=== PATIENT | male | born 1990 | race African-American/Black ===

== ENCOUNTER 2018-01-09 11:03 | Emergency (ER) | payer SELFPAY ==
[2018-01-09 11:26] VITALS: BP 117/75; PULSE 68; TEMP 98.3; BMI 27.6
--- NOTE | 2018-01-09 13:08 | PDOC ---
History of Present Illness - General Chief Complaint: Back Pain Stated Complaint: PAIN/ BACK, LEGS Time Seen by Provider: 01/09/18 12:55 History Source: Patient Exam Limitations: No Limitations - History of Present Illness Initial Comments: 01/09/18 13:07 Patient came for evaluation of chronic low back pain. 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 was evaluated in emergency department at the time and was cleared for any fractures or significant injury. However patient has intermittent twinges and intermittent spasms from low back which is progressively worsened over the past few months. Has taken some Tylenol with minimal resolved. was at the park yesterday with his children and feels may have worsened low back issue. Denies numbness or tingling or feet, denies fevers, no problems with bowel or bladder. Severity: reports: moderate Pain Location: reports: back Modifying Factors: improves with: pain medication Associated Symptoms (Fall): denies symptoms Past History - Travel Traveled outside of the country in the last 30 days: No Close contact w/someone who was outside of country & ill: No - Past Medical History Allergies/Adverse Reactions: Allergies Allergy/AdvReac Type Severity Reaction Status Date / Time No Known Allergies Allergy Verified 01/09/18 11:23 Home Medications: Ambulatory Orders Cyclobenzaprine HCl 10 mg PO Q8H PRN #14 tablet 01/09/18 NK [No Known Home Medication] 01/09/18 COPD: No Other medical history: DENIES. - Suicide/Smoking/Psychosocial Hx Smoking History: Never smoked Have you smoked in the past 12 months: Yes Number of Cigarettes Smoked Daily: 2 Information on smoking cessation initiated: No Trauma Specific PMHX - Complaint Specific PMHX Back Injury: Yes (2 years ago) Review of Systems - Review of Systems Able to Perform ROS?: Yes Is the patient limited Martiniquais proficient: Yes Constitutional: Yes: Symptoms Reported, See HPI. No: Fever HEENTM: Yes: See HPI. No: Symptoms Reported Respiratory: Yes: See HPI. No: Cough Musculoskeletal: Yes: Symptoms Reported, See HPI, Back Pain, Muscle Pain Integumentary: No: Symptoms Reported All Other Systems: Reviewed and Negative *Physical Exam - Vital Signs Last Vital Signs Temp Pulse Resp BP Pulse Ox 98.3 F 68 19 117/75 99 01/09/18 11:24 01/09/18 11:24 01/09/18 11:24 01/09/18 11:24 01/09/18 11:24 - Physical Exam General Appearance: Yes: Nourished, Appropriately Dressed, Mild Distress HEENT: positive: HILDA, Normal ENT Inspection, Normal Voice, TMs Normal, Pharynx Normal Neck: positive: Supple. negative: Tender Respiratory/Chest: positive: Lungs Clear, Normal Breath Sounds Musculoskeletal: positive: Normal Inspection, Muscle Spasm (tense tight musculature to the paravertebral spinous muscles bilaterally, worse on the left than the right. Has no true crepitus step-offs or deformity to low back spinous process. Range of motion is mildly limited secondary to this tenderness in the lumbar spine area. Is ambulatory but walks slowly. Neurovascular intact to feet) . negative: CVA Tenderness (L), Vertebral Tenderness Extremity: positive: Normal Capillary Refill, Normal Inspection, Normal Range of Motion Integumentary: positive: Normal Color, Dry, Warm Neurologic: positive: vice president of communications II-XII NML intact, Fully Oriented, Alert, Normal Mood/ Affect, Normal Response, Motor Strength 5/5 *DC/Admit/Observation/Transfer Diagnosis at time of Disposition: Low back strain Qualifiers: Encounter type: initial encounter Qualified Code(s): S39.012A - Strain of muscle, fascia and tendon of lower back, initial encounter - Discharge Dispostion Disposition: HOME Condition at time of disposition: Stable Admit: No - Referrals Referrals: [facility] [Provider Group] - Patient Instructions Printed Discharge Instructions: DI for Low Back Pain Additional Instructions: Rest, no heavy lifting or exercise until pain is resolved Hot soaks to neck and low back as often as possible/hot showers or Jacuzzis No massage or therapy until spasm is gone Continue ibuprofen 2-200 mg tablets every 6 hours for the next 3 days then as needed for pain and swelling Cyclobenzaprine 1-10mg every 8 hours as needed for spasm If not significant improvement within 24 hours with medication and rest regime, followup with private physician for change in medications and /or therapy. - Post Discharge Activity
== END 2018-01-09 13:11 | disposition home or self-care (01) ==
LOC: JERFT 11:03
DX: S39.012A Strain of muscle, fascia and tendon of lower back, initial encounter (principal); X58.XXXA Exposure to other specified factors, initial encounter; Y93.89 Activity, other specified; Y92.9 Unspecified place or not applicable; G89.29 Other chronic pain
CPT/HCPCS: 99281-25